=== PATIENT | male | born 1960 | race Caucasian/White ===

== ENCOUNTER 2017-02-17 15:37 | Inpatient (IN) ==
[2017-02-17] MEDS ORDERED: ONDANSETRON 4 MG/2 ML VIAL IV STA (17:13)
[2017-02-17] MEDS ORDERED: HYDROmorphone 2 MG/1 ML VIAL IV STA ×2 (17:13→19:07)
--- NOTE | 2017-02-17 17:16 | XRay Report ---
XR chest 1V portable Indication: Dyspnea Comparison: 07 September 2015 Findings: The heart and mediastinum are similar in size and configuration. There is a loculated pneumothorax in the right inferior thorax not present on previous study. The pulmonary vascularity is normal in caliber. There is increased right lower lung density, underlying mass density on the previous study appear similar in size. No other lung infiltrates, effusions, pneumothorax or other abnormality is demonstrated. Impression: Loculated pneumothorax inferior right hemithorax. Increased right lower lung density, at least a component of this is atelectasis. Underlying mass density on previous study appears similar. PROCEDURE INTERPRETED AT [facility] DEPARTMENT OF RADIOLOGY Final Report Signed by: Dr. Cristhian Vila
[2017-02-17] MEDS ORDERED: ONDANSETRON 4 MG/2 ML VIAL ONE (17:23)
[2017-02-17] MEDS ORDERED: HYDROmorphone 2 MG/1 ML VIAL ONE ×2 (17:24→19:04)
--- NOTE | 2017-02-17 17:25 | CT Report ---
CT brain Indication: Headache, metastatic disease Comparison: None available Technique: Axial CT imaging of the brain is performed without contrast with 3 mm increments. Findings: There is extensive edema present involving mostly white matter involving the right temporal parietal and occipital lobe junction with cervical effacement. There is mass effect causing midline shift up to 7 mm. No other evidence of hemorrhage, mass mass effect midline shift or acute infarct seen. The brain parenchyma attenuation and differentiation appears within normal limits. The ventricles and cisterns are normal in caliber. No cranial or skull base abnormality is identified. Impression: Focal edema involving the white matter of the right temporal parietal occipital lobe junction with mass effect causing midline shift up to 7 mm. No other acute findings. This CT exam was performed using one or more the following dose reduction techniques: Automated exposure control, adjustment of the MA and/or KV according to patient size, or use of iterative reconstruction technique. PROCEDURE INTERPRETED AT [facility] DEPARTMENT OF RADIOLOGY Final Report Signed by: Dr. Cristhian Vila
--- NOTE | 2017-02-17 17:28 | Emergency Department Note ---
Arrival - Arrival Chief Complaint: Psychiatric ED Nursing Triage Note: Brought in by EMS c/o headache-onset one week ago. 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 Mode of Arrival: Stretcher Limitations: Uncooperative Source: Patient Time Seen by Provider: 02/17/17 16:12 - History of Present Illness HPI Narrative: The patient presented via EMS for suicidal ideation. He has stage IV lung cancer with metastases to the brain and has chronic pain. He states the oxycodone is not working. He reportedly took out a gun at home and said he was going to shoot himself. Someone called EMS. He continues to say he has suicidal and will kill himself as soon as he gets a chance. He complains of severe headache. No other complaints but he is pretty uncooperative. Allergies/Adverse Reactions: Allergies Allergy/AdvReac Type Severity Reaction Status Date / Time No Known Allergies Allergy Verified 02/17/17 15:52 Home Medications: Home Medications Medication Instructions Recorded Confirmed Type Albuterol Neb [Proventil Neb] 2.5 mg RESP TX RT Q6H PRN #30 06/27/15 07/07/16 Rx nebulization solution Amitriptyline [Elavil] 25 mg PO BEDTIME #30 tablet 06/27/15 07/07/16 Rx PARoxetine [Paxil] 20 mg PO DAILY #30 tablet 06/27/15 07/07/16 Rx Review of System - Review of System ROS unobtainable: other (Uncooperative) - Review of System Neurological: Present: headache Medical,Surgical,& Family Hx - Medical History Psychological: History of: Depression Neurology: History of: Neurologocal Cancer (Lung cancer metastatic to brain) Respiratory: History of: Lung Cancer (lung cancer with mets to brain), Respiratory Problems (MASS ON RIGHT LUNG) - Surgical History Thoracic Surgeries: Patient denies;: Lobectomy Reproductive Surgeries: Surgical HX of;: Vasectomy - Family History Family History: Reports;: Family Cancer (father had lung cancer and mother had breast cancer), Family Heart Disease - Social History Smoking Status: Current every day smoker Frequency of Alcohol Use: None Type of Drug Use: None Exam Physical Examination: GENERAL: Alert. No acute distress. Thin chronically ill-appearing. Uncooperative. HEENT: Normocephalic and atraumatic. There is no nasal drainage. No pharyngeal erythema or exudate. NECK: Normal inspection. Supple. No lymphadenopathy or meningismus. Full range of motion. LUNGS: No respiratory distress. Decreased breath sounds on the right side. HEART: Regular rate and rhythm. ABDOMEN: Soft, nontender and nondistended with normoactive bowel sounds. BACK: Normal inspection. SKIN: Color normal. Warm and dry. EXTREMITIES: Nontender. Normal range of motion. No pedal edema. NEUROLOGICAL/PSYCHIATRIC: Alert and oriented. Uncooperative. Trying to leave. Positive suicidal ideation.. Cranial nerves normal. No motor or sensory deficit. Vital Signs: Vital Signs Temperature 99.1 F 02/17/17 15:46 Pulse Rate 81 02/17/17 15:46 Respiratory Rate 18 02/17/17 15:46 Blood Pressure 121/66 02/17/17 15:46 O2 Sat by Pulse Oximetry 100 02/17/17 15:46 Course - Reevaluation(s) Reevaluation #1: I have discussed the patient with Dr. Sosa who has asked that we put in a chest tube Time: 17:23 Reevaluation #2: Before the tube was placed, Dr. Perez view the chest x-ray and requested that we not put in the tube because the pneumothorax looks loculated and he does not believe it will do much good. The patient is still stable at this point with a normal blood pressure and heart rate. His oxygen saturation is 96% on room air. Time: 17:28 Reevaluation #3: Patient remained stable. Still waiting on CBC and Dr. Tapia to return call. Time: 18:17 - Consultations Consultation #1: Just spoke to Dr. Tapia regarding patient. I will admit to Dr. Sherwood. We will give him 10 mg of Decadron now and 6 every 12 hours as well as pain control with Dilaudid. Dr. Sosa will be consulted on the patient. CBC is still pending at this point. Time: 18:36 Results - Labs CBC & BMP: 02/17/17 17:05 Lab Results: I have reviewed the patients labs - Impressions CT of the head showsFocal edema involving the white matter of the right temporal parietal occipital lobe junction with mass effect causing midline shift up to 7 mm. No other acute findings. Chest x-ray shows Loculated pneumothorax inferior right hemithorax. Increased right lower lung density, at least a component of this is atelectasis. Underlying mass density on previous study appears similar. Disposition Clinical Impression: Suicidal ideation, Lung cancer, Brain metastases, Pneumothorax, right, Headache Case discussed with: patient Disposition: Still a Patient Time of Disposition: 18:37
[2017-02-17 17:54] LABS: Alanine Aminotransferase 13 U/L (16-61); Albumin 3.1 G/DL (3.4-5.0); Alkaline Phosphatase 80 U/L (45-117); Aspartate Amino Transferase 10 U/L (0-37); Bilirubin,Total < 0.39 MG/DL (0.2-1.0); Blood Urea Nitrogen 11 MG/DL (7-18); Calcium 9.2 MG/DL (8.5-10.1); Glucose 84 MG/DL (74-106); Osmolality,Calculated 276.4 MOS/KG (273-304); Potassium 4.3 MMOL/L (3.5-5.1); Sodium 140 MMOL/L (136-145); Total Protein 6.8 G/DL (6.4-8.3)
[2017-02-17 18:35] LABS: Acetaminophen < 2.0 UG/ML (10-30); Salicylate < 2.8 MG/DL (2.8-20)
[2017-02-17] MEDS ORDERED: DEXAMETHASONE 4 MG/1 ML VIAL IV STA (18:43)
[2017-02-17] MEDS ORDERED: DEXAMETHASONE 10 MG/1 ML VIAL ONE (19:04)
[2017-02-17] MEDS ORDERED: LOPERAMIDE 2 MG CAPSULE PO PRN ×2 (19:23)
[2017-02-17] MEDS ORDERED: ALPRAZolam 0.25 MG TABLET PO PRN (19:23)
[2017-02-17] MEDS ORDERED: MAGNESIUM HYDROXIDE SUSP 30 ML UDCUP PO PRN (19:23)
[2017-02-17] MEDS ORDERED: chlorproMAZINE INJ 50 MG in SODIUM CHLORIDE 0.9% 100 ML IV PRN (19:23)
[2017-02-17] MEDS ORDERED: guaiFENesin 200 MG/10 ML UDCUP PO PRN (19:23)
[2017-02-17] MEDS ORDERED: LACTULOSE 20 GM/30 ML UDCUP PO PRN (19:23)
[2017-02-17] MEDS ORDERED: ACETAMINOPHEN 325 MG TABLET PO PRN (19:23)
[2017-02-17] MEDS ORDERED: traMADol 50 MG TABLET PO PRN (19:23)
[2017-02-17] MEDS ORDERED: ONDANSETRON 4 MG/2 ML VIAL IV PRN (19:23)
[2017-02-17] MEDS ORDERED: chlorproMAZINE INJ 25 MG in SODIUM CHLORIDE 0.9% 100 ML IV PRN (19:23)
[2017-02-17] MEDS ORDERED: TEMAZEPAM 7.5 MG CAPSULE PO PRN (19:23)
[2017-02-17] MEDS ORDERED: ALUMINUM/MAGNES/SIMETH MAX STR 30 ML UDCUP PO PRN (19:23)
[2017-02-17] MEDS ORDERED: PROMETHAZINE INJ 25 MG in SODIUM CHLORIDE 0.9% 50 ML IV PRN (19:23)
[2017-02-17] MEDS ORDERED: BENZTROPINE 2 MG/2 ML AMP IV PRN (19:23)
[2017-02-17] MEDS ORDERED: chlorproMAZINE 25 MG TABLET PO PRN (19:23)
[2017-02-17] MEDS ORDERED: MYLANTA/LIDO VISC 2:1 300 ML BOTTLE SWISH/SWAL PRN (19:23)
[2017-02-17] MEDS ORDERED: MYLANTA/LIDO VISC 2:1 300 ML BOTTLE SWISH/SPIT PRN (19:23)
[2017-02-17 19:46] LABS: Magnesium 1.9 MG/DL (1.8-2.4)
[2017-02-17] MEDS: SODIUM CHLORIDE 0.45% 1,000 ML IV SCH (20:22)
[2017-02-17] MEDS: HYDROmorphone 2 MG/1 ML VIAL IV PRN (20:27)
[2017-02-17] MEDS: diphenhydrAMINE CAP 25 MG CAPSULE PO PRN (20:28)
[2017-02-18] MEDS: DEXAMETHASONE 10 MG/1 ML VIAL IV SCH ×2 (00:50→06:37)
[2017-02-18] MEDS: diphenhydrAMINE CAP 25 MG CAPSULE PO PRN (01:04)
[2017-02-18] MEDS: HYDROmorphone 2 MG/1 ML VIAL IV PRN (01:04)
[2017-02-18 06:17] LABS: Alanine Aminotransferase 13 U/L (16-61); Albumin 3.1 G/DL (3.4-5.0); Alkaline Phosphatase 91 U/L (45-117); Aspartate Amino Transferase 8 U/L (0-37); Bilirubin,Total < 0.39 MG/DL (0.2-1.0); Blood Urea Nitrogen 13 MG/DL (7-18); Calcium 8.9 MG/DL (8.5-10.1); Glucose 134 MG/DL (74-106); Osmolality,Calculated 276.7 MOS/KG (273-304); Potassium 5.2 MMOL/L (3.5-5.1); Sodium 138 MMOL/L (136-145); Total Protein 6.3 G/DL (6.4-8.3)
--- NOTE | 2017-02-18 07:09 | Oncology History&Physical ---
Assessment and Plan (1) Squamous cell carcinoma of right lung Status: Acute Assessment and plan: My plan at this point is to do a full staging reassessment with an MRI of his brain and CT of his chest. Hopefully he will be cooperative with this. His prognosis is very poor as I strongly suspect he has progression of disease. Our most likely only treatment option at this point will be supportive care as he is unlikely to respond to further systemic treatment. If he is willing and able, we could consider repeat a radiation if there is only one area of true progression. Of course this all depends on whether he will be cooperative with repeat imaging. At this point he is saying he just wants to leave. Current Visit: No (2) Brain metastases Status: Acute Current Visit: Yes (3) Headache Status: Acute Current Visit: Yes History of Present Illness History of present illness: Mr. Saab is a 56 year old male with a history of metastatic lung cancer with a primary right lung lesion and brain metastases who was treated with whole brain radiation a few months ago and has most recently been managed with palliative systemic chemotherapy. He is actually done fairly well with treatment and this is most likely due to his young age and lack of significant tumor burden outside of his brain. Recently he is complaining of worsening headaches we were scheduling him for repeat imaging this week. He presented to the emergency room last night complaining of severe pain and suicidal ideations to help relieve the head pain. He was admitted after a CT scan showed likely worsening of his known brain metastases. Is currently in ICU for close observation due to suicidal ideations. This morning he is very agitated. He has normally someone who is very difficult to communicate with them fairly uncooperative in clinic. He does not seem to be too far off of his baseline on my exam this morning. I tried to explain to him that we need to do further imaging and strongly need to consider hospice care. Home Medications Medication Instructions Recorded Confirmed Type Albuterol Neb [Proventil Neb] 2.5 mg RESP TX RT Q6H PRN #30 06/27/15 07/07/16 Rx nebulization solution Amitriptyline [Elavil] 25 mg PO BEDTIME #30 tablet 06/27/15 07/07/16 Rx PARoxetine [Paxil] 20 mg PO DAILY #30 tablet 06/27/15 07/07/16 Rx Allergies Allergy/AdvReac Type Severity Reaction Status Date / Time No Known Allergies Allergy Verified 02/17/17 15:52 Medical,Surgical,& Family Hx - Medical History Psychological: History of: Depression Neurology: History of: Neurologocal Cancer (Lung cancer metastatic to brain) Respiratory: History of: Lung Cancer (lung cancer with mets to brain), Respiratory Problems (MASS ON RIGHT LUNG) - Surgical History Thoracic Surgeries: Patient denies;: Lobectomy Reproductive Surgeries: Surgical HX of;: Vasectomy - Family History Family History: Reports;: Family Cancer (father had lung cancer and mother had breast cancer), Family Heart Disease - Social History Smoking Status: Current every day smoker Frequency of Alcohol Use: None Type of Drug Use: None ROS unobtainable: due to mental status Exam - Constitutional Vitals: Period Temp Pulse Resp BP Sys/Angulo Pulse Ox Last 24 Hr 96.7 F-99.1 F 58-93 10-21 86-128/60-88 95-100 General appearance: mild distress, under weight - Head Head Exam: Present: normocephalic, atraumatic - Eye Eye Exam: Absent: periorbital swelling, scleral icterus - Neck Neck exam: Absent: lymphadenopathy, thyromegaly - Respiratory Respiratory exam: Present: decreased breath sounds. Absent: wheezes - Cardiovascular Cardiovascular exam: Present: RRR. Absent: JVD, systolic murmur - GI/Abdominal GI/Abdominal exam: Present: soft. Absent: ascites, distended, mass - Neurological Exam Neurological exam: Present: alert, altered - Psychiatric Psychiatric exam: Present: agitated - Skin Skin exam: Present: warm, dry Results - Labs CBC & BMP: 02/18/17 05:28 - Diagnostic Findings Procedure: Chest x-ray: report reviewed by me, CT: report reviewed by me
[2017-02-18 08:27] LABS: Basophils % 0.2 % (0.0-0.8); Hematocrit 40.2 VOL% (42.0-52.0); Hemoglobin 13.1 GM/DL (14.0-18.0); Immature Granulocytes % 1.2 %; Immature Granulocytes Absolute 0.07 #; Lymphocytes # 0.5 10*3/uL (1.4-4.0); Lymphocytes % 9.1 % (21.2-54.2); Mean Corpuscular HGB Conc 32.6 GM/DL (32-36); Mean Corpuscular Hemoglobin 30 PG (27-34); Mean Corpuscular Volume 90.7 FL (87-102); Mean Platelet Volume 9.1 FL (9.6-12.0); Monocytes # 0.2 10*3/uL (0.11-0.8); Monocytes % 2.5 % (1.7-12.7); Neutrophils # 5.2 10*3/uL (1.4-7.4); Platelet Count 302 T/CUMM (130-400); Red Blood Count 4.43 MC/CUMM (3.8-5.5); Red Cell Distribution Width 14.3 % (9.3-17.3); White Blood Count 5.9 T/CUMM (4-12)
--- NOTE | 2017-02-18 08:27 | XRay Report ---
XR chest 1V portable Indication: Pneumothorax Comparison: 17 February 2017 Findings: The heart and mediastinum are stable in size and configuration. Loculated pneumothorax is present with similar appearance to previous exam. Right lower lung density and volume loss is slightly increased. Left internal jugular Port-A-Cath is unchanged in position. The pulmonary vascularity is normal in caliber. No lung infiltrates, effusions, pneumothorax or other abnormality is demonstrated. Impression: Slight increase in the right lower lung density and volume loss. The remaining findings are similar to previous exam. PROCEDURE INTERPRETED AT [facility] DEPARTMENT OF RADIOLOGY Final Report Signed by: Dr. Cristhian Vila
[2017-02-18] MEDS: DEXAMETHASONE 4 MG/1 ML VIAL IV SCH ×4 (10:00→22:30)
[2017-02-18] MEDS: PANTOPRAZOLE 40 MG TABLET PO SCH (10:54)
[2017-02-18 18:12] LABS: Apearance,Urine CLEAR (Clear); Bilirubin,Urine Negative (Negative); Blood, Urine Negative (Negative); Glucose,Urine (UA) 50 mg/dL (Negative); Ketones,Urine Negative (Negative); Mucus,Urine Occasional /LPF (Occasional); Nitrite,Urine Negative (Negative); Protein,Urine Negative; RBC,Urine <1 /HPF (0-4); Urine Color Yellow (Yellow); Urine Specific Gravity 1.017 (1.001-1.035); Urine Urobilinogen < 2.0 EU/DL (0.2-1.0); WBC,Urine <1 /HPF (0-6)
[2017-02-18] MEDS: SODIUM CHLORIDE 0.45% 1,000 ML IV SCH ×2 (18:13→22:27)
--- NOTE | 2017-02-19 07:53 | Oncology Progress Note ---
Assessment and Plan (1) Brain metastases Status: Acute Current Visit: Yes (2) Headache Status: Acute Current Visit: Yes Oncology Subjective PN Interval history: Mr. Saab seems to be more alert this morning. He is still fairly combative and argumentative but we were able to have a lengthy conversation about his progression seen on CT scan. I explained to him that we do not have to do any further workup if he would like to just go home with home hospice. I am unsure though this point if he is mentally capable of being at home alone and his family has expressed that they are not able to take care of him. After further conversation he would like to reorder the MRI of his brain and a CT of his chest for reassessment. He is considering continuing on the treatment. I have explained to him that further treatment will not likely be of any benefit to him. We will move out of ICU today. I will discontinue suicide precautions. I am unsure what discharge disposition we will have available but this morning he seems back to his usual self. Exam - Constitutional Vitals: Period Temp Pulse Resp BP Sys/Angulo Pulse Ox Last 24 Hr 0 F-99.1 F 0-127 0-111 0-138/0-85 93-100 General appearance: no acute distress, under weight - Head Head Exam: Present: normocephalic, atraumatic - Eye Eye Exam: Present: EOMI Pupils: Present: PERRL - ENT ENT exam: Present: normal exam, normal oropharynx - Neck Neck exam: Absent: lymphadenopathy, thyromegaly - Respiratory Respiratory exam: Present: CTAB. Absent: wheezes - Cardiovascular Cardiovascular exam: Present: RRR. Absent: JVD - GI/Abdominal GI/Abdominal exam: Present: soft. Absent: ascites, distended Results - Labs CBC & BMP: 02/18/17 08:20 02/18/17 05:28 Lab Results: I have reviewed the past 24 hour labs
--- NOTE | 2017-02-19 09:10 | Physician Query Form ---
CLICK EDIT DOCUMENT TO SELECT QUERY ANSWER --> OK --> SIGN Tamika Mauricio RN, CCDS Certified Clinical Research Nurse Practitioner W) [phone] (f) [phone] [email or web address] PROVIDERS: Make your selection(s) from the choices in EACH section by typing an "x" and enter comments in the comment section. Please use your independent medical judgment in providing your response. This request does not imply that any particular answer is desired or expected. CLINICAL INDICATORS: (Providers should not edit this section) "CT of the head shows Focal edema involving the white matter of the right temporal parietal occipital lobe junction with mass effect causing midline shift up to 7 mm" and the patient is on Decadron. Based on the above, could you clarify the appropriate diagnosis, if significant , that supports the above abnormalities and additional evaluation, monitoring, and/or treatment rendered: ( ) patient is not being monitored or treated for cerebral edema ( x) patient is being monitored or treated for cerebral edema ( ) Other, please specify: ( ) Clinically unable to determine COMMENTS: PLEASE ALSO DOCUMENT RESPONSE IN PROGRESS NOTES AND/OR DISCHARGE SUMMARY Use of terms such as suspected, likely, or probable (associated with a specific diagnosis that is being evaluated, monitored, or treated as if it exists) are acceptable and can be restated in the discharge summary if not ruled out. MTDD
[2017-02-19] MEDS: PANTOPRAZOLE 40 MG TABLET PO SCH (10:00)
--- NOTE | 2017-02-19 11:42 | Magnetic Resonance Report ---
MRI brain without and with contrast Indication: Brain metastases Comparison: 09 November 2016 Technique: Axial sagittal and coronal imaging of the brain is performed without and with intravenous contrast. T1, T2, FLAIR and diffusion weighted sequences are performed. Contrast dose is 10 cc Dotarem. Findings: Lesion is present centered in the right occipital lobe which is increased in size with interdigitated and heterogeneous signal and enhancement. The overall dimensions are 4.0 x 2.8 x 4.2 cm. A small amount of restricted diffusion. There is extensive white matter edema causing localized mass effect and there is midline shift estimated at 3 mm. This has significantly increased since the previous study. Impression: Significant increase in the size, edema and mass effect from right occipital lobe lesion as described above. No other distinct and the lesions are identified. PROCEDURE INTERPRETED AT [facility] DEPARTMENT OF RADIOLOGY Final Report Signed by: Dr. Cristhian Vila
[2017-02-19] MEDS ORDERED: PARoxetine 20 MG TABLET PO SCH (12:30)
--- NOTE | 2017-02-19 13:34 | CT Report ---
History: Lung cancer Date: 02/19/2017 Study: CT chest with IV contrast Comparison exam: November 06, [address] sections were obtained through the lungs following the IV administration of 80 mL of Omnipaque 350 without immediate complication. The CT exam was performed using one or more of the following dose reduction techniques: Automated exposure control, adjustment of the mA and/or kV according to patient size, or use of iterative reconstruction technique. Preliminary verbal report was given to nurse Cruz in CCU at the time of dictation. There is a large pneumothorax on the right which approaches 50% or greater. The right lung is tethered to the lateral chest wall by some adherent pleural disease. There is some confluent right hilar soft tissue density which may represent postsurgical change with or without underlying residual tumor, grossly similar to the comparison study. This is difficult to measure because of the passive atelectasis of the right lung. There is passive atelectasis in the right lower lobe and right middle lobe. There is some scarring in the posterior right lung apex. There are moderate changes of centrilobular emphysema in both lungs. There is an occasional calcific granuloma in the left upper lobe and left lower lobe. There is mild platelike scar or atelectasis in the left upper lobe medially. There is no aortic aneurysm or aortic dissection. There is moderate coronary artery calcification with involvement of the left main and left anterior descending coronary arteries. There is no significant abnormality of the partially visualized upper abdomen. There is mild spondylotic change of the thoracic spine. A left IJ Mediport-type catheter is positioned with its tip in the superior vena cava. Impression: Large right-sided pneumothorax. The lateral aspect of the mid right lung is tethered by some adherent pleural disease. Verbal report was given to CCU. There is no mediastinal shift. Amorphous increased density in the right hilar region which may represent postsurgical change with or without residual neoplasm. This grossly stable compared to November 06, 2016. Passive atelectasis of the right lung otherwise No adverse interval changes otherwise PROCEDURE INTERPRETED AT [facility] DEPARTMENT OF RADIOLOGY Final Report Signed by: Dr. Verónica Thompson
--- NOTE | 2017-02-19 15:42 | Discharge Summary ---
Hospital Course - Hospital Course Hospital Course: This is a 56-year-old white male with a history of metastatic lung cancer with brain metastases who was admitted with suicidal ideations and reported confusion by his family. CT scan at the time of admission showed worsening edema on the right parietal lobe with concerning masslike finding have the parietal/occipital junction. He was in ICU for one-to-one observation due to suicidal ideations. He was very difficult to deal with and was also initially refusing any further workup. On 02/19/2017, I had a very lengthy conversation with him explaining to him that I'm very concerned that he has progression of his known brain metastases and I need to do an MRI of his brain and a CT of his chest for further evaluation of his malignancy. He agreed to the MRI and CT scan. The MRI showed a definitive 4 cm mass that has progressed in his right parietal lobe with small midline shift and worsening edema. His CT scan showed a large pneumothorax. Patient was transferred to the floor from the ICU since he appeared to be stable. Later in the day of 02/19/2017 he became adamant that he would like to go home. The nurses explained to him that I would like to talk to him further about his scans so that he can be aware that he has progression of disease. He was still adamant that he would like to go home. His pneumothorax on his right chest does not appear to be causing any type of acute issues. It would've still been better to address this with Gen. surgery that I do not think any intervention is needed because his right chest is tethered to his chest wall I do not anticipate that it would reexpand even if a chest tube was placed. We will discharge him home and I strongly encouraged him to consider home hospice. If he would like any further workup or evaluation he will need to call the clinic for an appointment. Diagnosis - Discharge Diagnosis (1) Brain metastases Status: Acute (2) Headache Status: Acute Specialty Discharge - Follow Up or Referrals Follow up with: Gentry Sherwood MD [Physician] - Discharge Plan - Discharge Data Disposition: Disch To Home/Self Care Condition at Discharge: Stable Discharge Diet: advance to your usual diet Hygiene: no restrictions - Discharge Medications Continue Amitriptyline [Elavil] 25 mg PO BEDTIME #30 tablet PARoxetine [Paxil] 20 mg PO DAILY #30 tablet Albuterol Neb [Proventil Neb] 2.5 mg RESP TX RT Q6H PRN #30 nebulization solution PRN Reason: Shortness Of Breath/Wheezing - Follow Up or Referral Follow Up: Gentry Sherwood MD [Physician] - - Forms/Instructions Exam - Constitutional Vitals: Period Temp Pulse Resp BP Sys/Angulo Pulse Ox Last 24 Hr 0 F-98.9 F 0-115 0-111 0-130/0-76 93-95 Discharge Results Labs on day of discharge: Labs from last 24 hours 02/18/17 18:03 Urine Color Yellow Urine Appearance Clear Urine pH 5.0 Ur Specific [place] 1.017 Urine Protein Negative Urine Glucose (UA) 50 Urine Ketones Negative Urine Blood Negative Urine Nitrate Negative Urine Bilirubin Negative Urine Urobilinogen < 2.0 H Urine Leukocytes Negative Urine RBC <1 Urine WBC <1 Urine Mucus Occasional Ur Culture Indicated? Not indicated DS: Provider Date of admission: 02/17/17 18:38 Primary care physician: . No PCP Attending physician on admission: Gentry Sherwood MD Consults: 02/19/17 10:04 Consult to Case Mgmt/Social Srvs [CONS] Routine Reason for Case Mgmt/Social Srvs: Psychiatric Management Consult Comment: Patient threatened suicide 02/19/17 14:41 Consult to Physician [CONS] Routine Comment: Consulting Provider: Lonnie Rivera Consulting Provider Notified: Yes When should Consulting Provider be notified: Now Consult to Specialist Group: Radiation Oncology When should Consulting Provider be notified: Now Person Notified: SUHAS Date Notified: 02/19/17 Time Notified: 14:43 Discharging clinician: Gentry Sherwood MD
[2017-02-19 19:38] VITALS: BP 104/67
--- NOTE | 2017-02-21 07:25 | Physician Query Form ---
CLICK EDIT DOCUMENT TO SELECT QUERY ANSWER --> OK --> SIGN Tamika Mauricio RN, CCDS Certified [employer] [place] (W) [phone] (F) [phone] [email or web address]: Make your selection(s) from the choices in EACH section by typing an "x" and enter comments in the comment section. Please use your independent medical judgment in providing your response. This request does not imply that any particular answer is desired or expected. 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 Based on the above, which following choice most accurately represents the patient's nutritional status? ( ) Malnutrition ( ) mild ( ) moderate ( ) severe ( ) Protein calorie malnutrition ( ) mild ( ) moderate ( ) severe ( ) Emaciation due to malnutrition ( ) Nutritional marasmus ( ) Cachexia (x ) Underweight ( ) No nutritional deficiency ( ) Other, please specify: ( ) Clinically unable to determine Mild Malnutrition (BMI < 18.5, % Normal Body Weight 85-95%) Moderate Malnutrition (BMI < 17, % Normal Body Weight 75-85%) Severe Malnutrition (BMI < 16, % Normal Body Weight < 75%) Source: [place] COMMENTS: PLEASE ALSO DOCUMENT RESPONSE IN PROGRESS NOTES AND/OR DISCHARGE SUMMARY Use of terms such as suspected, likely, or probable (associated with a specific diagnosis that is being evaluated, monitored, or treated as if it exists) are acceptable and can be restated in the discharge summary if not ruled out. MTDD
== END 2017-02-19 16:00 | disposition home or self-care (01) | DRG 41 ==
LOC: EDUNIT# → N.ED 15:37 → N.EDINP 18:38 → N.CC 19:17 → N.4E 02-19 13:45
PROVIDERS: ADMIT Specialist; ATTEND Specialist